=== PATIENT | male | born 1975 | race Caucasian/White ===

== ENCOUNTER 2020-02-10 12:39 | Inpatient (IN) | payer SELFPAY ==
[2020-02-10] MEDS ORDERED: Morphine 4 MG/ML VIAL ONE (13:20)
[2020-02-10] MEDS ORDERED: Ondansetron PF 4 MG/2 ML Vial ONE (13:20)
[2020-02-10 13:39] LABS: Albumin 4.5 g/dL (3.5-5.0)
[2020-02-10 13:40] LABS: #Basophils 0.1 thou/uL (0.0-0.2); #Eosinphils 0.1 thou/uL (0.0-0.7); #Lymphocytes 1.5 thou/uL (1.20-3.40); #Monocytes 0.9 thou/uL (0.11-0.59); #Neutrophils 9.9 thou/uL (1.40-6.50); %Basophils 0.6 % (0.0-1.0); %Eosinophils 0.9 % (0.0-10.0); %Neutrophils 79.5 % (42.0-75.0); Chloride 94 mmol/L (98-107); Hemoglobin 16.8 g/dL (14.0-18.0); Mean Corpuscular HGB CONC 34.2 g/dL (32.0-36.0); Mean Corpuscular Hemoglobin 31.1 pg (27.0-31.0); Mean Corpuscular Volume 90.8 fL (78.0-98.0); Mean Platelet Volume 6.8 fL (7.4-10.4); Platelet Count 394 thou/uL (130-400); Potassium 3.8 mmol/L (3.5-5.1); RBC Distribution Width 11.7 % (11.5-14.5); Red Blood Cell (RBC) Count 5.42 mill/uL (4.70-6.10); Sodium 131 mmol/L (136-145); White Blood Cell (WBC) Count 12.4 thou/uL (4.8-10.8)
[2020-02-10 13:41] LABS: Calcium 9.8 mg/dL (7.8-10.44); Glucose 134 mg/dL (70-105)
[2020-02-10 13:42] LABS: Globulin 3.4 g/dL (2.4-3.5); Protein, Total 7.9 g/dL (6.0-8.3)
[2020-02-10 13:43] LABS: Anion Gap 16 mmol/L (10-20); Bilirubin, Total 0.6 mg/dL (0.2-1.2); Carbon Dioxide 25 mmol/L (22-29)
[2020-02-10 13:44] LABS: Alcohol Less than 10 mg/dL (Less than 10); Alkaline Phosphatase 77 U/L (40-110)
[2020-02-10 13:45] LABS: Calc. Creatinine Clearance 0 mL/min (70-130); Estimated GFR-MDRD 69
[2020-02-10 13:46] LABS: Acetaminophen Less than 6.0 mcg/mL (10.0-30.0); BUN (Urea Nitrogen) 11 mg/dL (8.9-20.6); Salicylate Less than 8.0 mg/dL (15.0-30.0)
[2020-02-10 13:47] LABS: ALT (SGPT) 34 U/L (8-55); AST (SGOT) 23 U/L (5-34)
[2020-02-10] MEDS ORDERED: HYDROmorphone 0.5 MG/0.5 ML SYRINGE ONE ×2 (13:57→14:01)
[2020-02-10] MEDS ORDERED: Ketamine 50 MG/ML (10ML VIAL) ONE (14:02)
--- NOTE | 2020-02-10 14:08 | RAD ---
EXAM: 2 views of the left tibia/fibula HISTORY: Leg pain COMPARISON: None FINDINGS: There is a fracture dislocation of the left ankle. This involves a fracture of the distal t ibia which is likely a fracture of the medial malleolus and posterior malleolus as well as a fracture of the distal fibula. Distal soft tissue swelling is seen. IMPRESSION: Distal tibia and fibula fractures as well as ankle dislocation
--- NOTE | 2020-02-10 14:15 | RAD ---
Radiograph left ankle 2 views: 02/10/2020 1:54 PM HISTORY: 44-year-old male status post acute traumatic injury with deformity. FINDINGS: Lateral and posterior dislocation, and significant rotation, of the talus relative to the distal tibi a. Comminuted and significantly displaced distal fibular metadiaphyseal Casillas category C fracture, with significant lateral angulation of lateral malleolus relative to shaft. Comminuted and significantly displaced medial malleolar fracture. Probable posterior malleolus fracture with significant displacement. Talar dome is maintained. IMPRESSION: Acute, traumatic, comminuted, and significantly displaced trimalleolar left ankle fracture and disloc ation.
[2020-02-10] MEDS ORDERED: Midazolam HCl 2 mg/2 ml Vial ONE (14:50)
--- NOTE | 2020-02-10 15:13 | RAD ---
Radiograph left ankle 2 views: 02/10/2020 3:01 PM HISTORY: 44-year-old male with acute, traumatic trimalleolar fracture-dislocation of the left ankle. FINDINGS: Ankle has been placed into splint. There has been significant interval improvement in alignment of the high lateral malleolar comminuted fracture, now with approximately 50-75% shaft width posterior displacement of the lateral malleolus relative to the fibular shaft, and no significant angulation. There has been interval reduction of the tibiotalar dislocation. The medial and anterior aspects of t he ankle mortise are widened. Interval reduction of the medial malleolus fracture, the distal tip of which is now only moderately m edially displaced. Posterior malleolar fracture fragment is also better aligned. IMPRESSION: Interval reduction of the trimalleolar fracture-dislocation of the ankle (including Casillas category C fracture of the fibula), with improved alignment.
--- NOTE | 2020-02-10 16:55 | HP ---
REQUESTING PHYSICIAN: Dr. Senior. ATTENDING SURGEON: Dr. Galvan. CONSULTATIONS: Orthopedics, Dr. Peguero. HISTORY OF PRESENT ILLNESS: The patient is a 44-year-old man, who was unloading a trailer when he lost his footing, started to slip, planted his left foot and twisted, felt immediate pain and heard a snap. He fell to the ground, noted a deformity to his ankle, called 911 and was brought to the emergency department. In the emergency department, he was evaluated and examined, noted to have a fracture dislocation of the left ankle, at which time we were asked to evaluate the patient for admission and obtain Orthopedic consultation. The patient underwent conscious sedation in the emergency department and had a closed reduction and splinting done. He tolerated this well. The patient denied any loss of consciousness or syncopal events surrounding his fall. ALLERGIES: NONE. CURRENT MEDICATIONS: None. PAST SURGICAL HISTORY: Deviated septum and tonsils. 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 He smokes approximately half a pack of cigarettes per day. Drinks a 12-pack every night, more on the weekends, and admits to using methamphetamine two days ago. REVIEW OF SYSTEMS: A 10-point review of systems is negative as otherwise stated. PHYSICAL EXAMINATION: VITAL SIGNS: Blood pressure 121/78, heart rate 58, respirations 20, oxygen saturation 100% on room air, temperature 98.8. GENERAL: The patient is resting comfortably in bed. He has just been given pain medications, but he is able to answer all my questions. His Vlad Coma Scale is 14, -1 for eye opening. HEENT: Head is normocephalic and atraumatic. Eyes; extraocular motion intact. PERRLA bilaterally. Ears are atraumatic without discharge. Nose atraumatic without discharge. Oropharynx is clear. NECK: Nontender. Trachea is midline with no JVD. CHEST: Clear to auscultation with good inspiratory and expiratory effort. HEART: Regular rate and rhythm. ABDOMEN: Soft, flat, nontender with active bowel sounds. Pelvis is stable. EXTREMITIES: Neurovascularly intact x4. The left lower extremity on initial exam showed gross deformity to the left ankle consistent with his fracture dislocation. Followup exam postreduction showed the left lower extremity continues to be neurovascularly intact, was postreduction with well-padded splint in place. BACK: Atraumatic and nontender. LABORATORY FINDINGS: White blood cell count 12.4, hemoglobin 16.8, hematocrit 49.2, platelets 394. Sodium 131, potassium 3.8, chloride 94, CO2 of 25, BUN 11, creatinine 1.14, glucose 134. Blood alcohol less than 10. RADIOGRAPHIC REPORTS: Views of the left ankle show an acute traumatic comminuted and significantly displaced trimalleolar left ankle fracture and dislocation. Views of the left tibia and fibula again demonstrate the fracture dislocation of the distal tibia and fibula. Repeat ankle views show the interval reduction of the trimalleolar fracture dislocation. ASSESSMENT: 1. Status post ground level fall. 2. Left ankle fracture dislocation. 3. History of significant alcohol use. 4. History of methamphetamine and tobacco use. PLAN: Will be to admit the patient to the surgical floor. He will be made n.p.o. after midnight in preparation to undergo surgery in the morning with Dr. Peguero. Dr. Peguero was notified. The patient will have pulmonary toilet, gastritis, mechanical VTE prophylaxis. The patient was evaluated and examined in the emergency department with Dr. Galvan. Job ID: [id number]
[2020-02-10] MEDS ORDERED: Dextrose 5% in Water 1,000 ML IV PRN (18:45)
[2020-02-10] MEDS ORDERED: traMADol HCl 50 MG TAB PO PRN ×2 (18:45)
[2020-02-10] MEDS ORDERED: Promethazine HCl 25 MG/ML VIAL IM PRN ×2 (18:45)
[2020-02-10] MEDS ORDERED: Dextrose 50% Abboject 50 ML SYRINGE SLOW IVP PRN (18:45)
[2020-02-10] MEDS ORDERED: Ondansetron ODT 4 MG TAB PO PRN (18:45)
[2020-02-10] MEDS ORDERED: Ondansetron PF 4 MG/2 ML Vial IVP PRN (18:45)
[2020-02-10] MEDS ORDERED: Oxazepam 10 MG CAP PO SCH (19:15)
[2020-02-10] MEDS ORDERED: Acetaminophen 500 MG TAB PO SCH (19:15)
[2020-02-10] MEDS: Morphine 2 MG/ML VIAL SLOW IVP PRN (19:50)
[2020-02-10] MEDS: Famotidine 20 MG TAB PO SCH (19:55)
[2020-02-10] MEDS: Sodium Chloride 1 GM TAB PO SCH (19:58)
[2020-02-10 20:22] VITALS: BMI 26.6
[2020-02-10] MEDS: Ibuprofen 600 MG TAB PO SCH (20:41)
[2020-02-10] MEDS: Senokot S 8.6-50 MG TAB PO SCH (21:34)
[2020-02-10 21:46] LABS: SARS-CoV-2 MS2 Positive; SARS-CoV-2 N Gene Negative; SARS-CoV-2 S Gene Negative; SARS-CoV-2 by NAA Not Detected (NotDetected); SARS-CoV-2 orf1ab Negative
[2020-02-11] MEDS: Acetaminophen 500 MG TAB PO SCH ×5 (00:03→23:26)
[2020-02-11] MEDS: Cyclobenzaprine 10 MG TAB PO PRN ×2 (00:07→23:27)
[2020-02-11] MEDS: Sodium Chloride 0.9% 1,000 ML IV SCH ×4 (00:30→20:29)
[2020-02-11] MEDS: Oxazepam 10 MG CAP PO SCH ×5 (00:30→23:27)
[2020-02-11] MEDS: Morphine 2 MG/ML VIAL SLOW IVP PRN ×2 (01:56)
[2020-02-11] MEDS ORDERED: Morphine 2 MG/ML VIAL SLOW IVP PRN (02:24)
[2020-02-11] MEDS ORDERED: Gabapentin 100 MG CAP PO SCH (02:30)
[2020-02-11] MEDS ORDERED: Gabapentin 300 MG CAP PO SCH (02:45)
[2020-02-11 06:44] LABS: #Basophils 0.1 thou/uL (0.0-0.2); #Eosinphils 0.4 thou/uL (0.0-0.7); #Lymphocytes 2.6 thou/uL (1.20-3.40); #Neutrophils 6.3 thou/uL (1.40-6.50); %Basophils 0.6 % (0.0-1.0); %Eosinophils 3.4 % (0.0-10.0); %Lymphocytes 25.5 % (21.0-51.0); %Monocytes 9.8 % (0.0-10.0); %Neutrophils 60.8 % (42.0-75.0); Hemoglobin 15.1 g/dL (14.0-18.0); Mean Corpuscular HGB CONC 33.7 g/dL (32.0-36.0); Mean Corpuscular Hemoglobin 31.4 pg (27.0-31.0); Mean Corpuscular Volume 93.1 fL (78.0-98.0); Mean Platelet Volume 6.8 fL (7.4-10.4); Platelet Count 333 thou/uL (130-400); RBC Distribution Width 11.9 % (11.5-14.5); Red Blood Cell (RBC) Count 4.81 mill/uL (4.70-6.10); White Blood Cell (WBC) Count 10.4 thou/uL (4.8-10.8)
[2020-02-11] MEDS: Ibuprofen 600 MG TAB PO SCH ×3 (06:54→20:30)
[2020-02-11 07:07] LABS: Anion Gap 11 mmol/L (10-20); BUN (Urea Nitrogen) 12 mg/dL (8.9-20.6); Calc. Creatinine Clearance 121 mL/min (70-130); Calcium 8.4 mg/dL (7.8-10.44); Carbon Dioxide 26 mmol/L (22-29); Chloride 98 mmol/L (98-107); Estimated GFR-MDRD 78; Glucose 97 mg/dL (70-105); Magnesium 2.1 mg/dL (1.6-2.6); Phosphorus 2.9 mg/dL (2.3-4.7); Potassium 3.4 mmol/L (3.5-5.1); Sodium 132 mmol/L (136-145)
[2020-02-11] MEDS ORDERED: Multivitamin W/ Minerals 1 TAB PO SCH (09:00)
[2020-02-11] MEDS ORDERED: FLU VACC QS2020-21(6MOS UP)/PF 60 MCG/0.5 ML SYRINGE IM ONE (09:00)
--- NOTE | 2020-02-11 09:35 | CON ---
DATE OF CONSULTATION: 02/11/2020 HISTORY OF PRESENT ILLNESS: Mr. Tay is a 44-year-old male, who was unloading a trailer and planted his left foot twisted, felt immediate pain and deformity in the left ankle. The patient was brought to the emergency room. X-rays revealed comminuted, laterally dislocated trimalleolar fracture of the left ankle. The patient has some numbness over the dorsum of the left foot. The emergency room physician was able to get adequate reduction and was placed in a splint, which he has tolerated well. CURRENT MEDICATION: None. ALLERGIES: NONE. PAST SURGICAL HISTORY: Tonsillectomy and surgery for deviated septum. MEDICAL ILLNESSES: None. 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 Smokes a half pack of cigarettes per day. Drinks 12-pack every night. He admits to using methamphetamine 2 days ago. PHYSICAL EXAMINATION: GENERAL: The patient is a pleasant male. Alert and oriented x3. VITAL SIGNS: Temperature 97.7, pulse 65, respiratory rate 18, blood pressure 132/89, O2 saturation 98% on room air. HEENT: Unremarkable for age. Cranial nerves 2 through 12 are grossly intact. NECK: Good range of motion without pain. Thoracic lumbar spine is nontender to palpation. LUNGS: Clear bilaterally. HEART: Regular rate and rhythm. ABDOMEN: Soft and nontender. Bowel sounds positive. : Not done. EXTREMITIES: Unremarkable except for the left lower extremity. The patient has swelling and bruising on the left ankle. There is decreased sensation over the dorsum of left foot. Good peripheral pulses. He is able to flex and extend his toes well. LABORATORY DATA: White count 12.4, hemoglobin 16.8, hematocrit 49.2. Chemistries are normal. Blood alcohol is less than 10. IMPRESSION: 1. Status post lateral trimalleolar fracture dislocation of the left ankle. 2. History of alcohol use. 3. History of methamphetamine use. 4. Tobacco use. PLAN: The patient will require stabilization of the left ankle. We will plan on performing open reduction and internal fixation of the left ankle later today. Potential risks with the condition of surgery include, but are not limited to infection, bleeding, pain, damage to blood vessels and nerves, nonunion, malunion, the patient may require additional surgery, DVT, and PE formation. The patient's questions were answered. He was informed that he will need to be nonweightbearing for at least 2 months until the fractures are healed. Job ID: [id number]
[2020-02-11] MEDS: Folic Acid 1 MG TAB PO SCH (09:42)
[2020-02-11] MEDS: Famotidine 20 MG TAB PO SCH ×2 (09:42→20:30)
[2020-02-11] MEDS: Polyethylene Glycol 3350 17 GM Packet PO SCH (09:43)
[2020-02-11] MEDS: Sodium Chloride 1 GM TAB PO SCH ×2 (09:43→20:54)
[2020-02-11] MEDS: Senokot S 8.6-50 MG TAB PO SCH ×2 (09:43→20:32)
[2020-02-11] MEDS: Gabapentin 300 MG CAP PO SCH ×3 (09:43→20:29)
[2020-02-11] MEDS: Thiamine 100 MG TAB PO SCH (09:43)
[2020-02-11] MEDS ORDERED: Lidocaine 1% PF 5 ML VIAL ONE (11:46)
[2020-02-11] MEDS ORDERED: Ketorolac Tromethamine 30 MG/ML VIAL ONE (11:46)
[2020-02-11] MEDS ORDERED: Dexamethasone 20 MG/5 ML VIAL ONE (11:46)
[2020-02-11] MEDS ORDERED: Ondansetron PF 4 MG/2 ML Vial ONE (11:46)
[2020-02-11] MEDS ORDERED: PROPOFOL 200 MG/20 ML VIAL ONE (11:46)
[2020-02-11] MEDS ORDERED: Lidocaine 1% w/Epinephrine 1:100K 20 ML VIAL ONE (13:01)
[2020-02-11] MEDS ORDERED: Bupivacaine PF 0.5% 30 ML VIAL ONE (13:01)
[2020-02-11] MEDS ORDERED: Neomycin-Polymyxin 1 ML AMP ONE (13:01)
[2020-02-11] MEDS ORDERED: Fentanyl 100 MCG/2 ML VIAL ONE ×2 (13:02→13:40)
[2020-02-11] MEDS ORDERED: Midazolam HCl 2 mg/2 ml Vial ONE (13:15)
[2020-02-11] MEDS ORDERED: HYDROmorphone 2 MG/ML VIAL SLOW IVP PRN (14:50)
[2020-02-11] MEDS ORDERED: Ondansetron HCl/PF 4 MG/2 ML Vial IVP PRN (14:50)
[2020-02-11] MEDS ORDERED: Promethazine HCl 25 MG/ML VIAL SLOW IVP PRN (14:50)
[2020-02-11] MEDS ORDERED: Promethazine HCl 25 MG/ML VIAL IM PRN (14:50)
[2020-02-11] MEDS ORDERED: Ondansetron ODT 4 MG TAB PO PRN (14:58)
[2020-02-11] MEDS ORDERED: Acetaminophen 325 MG TAB PO PRN (14:58)
[2020-02-11] MEDS ORDERED: Fentanyl 100 MCG/2 ML VIAL SLOW IVP PRN (14:58)
[2020-02-11] MEDS ORDERED: Bisacodyl 10 MG SUPP PR PRN (14:58)
[2020-02-11] MEDS ORDERED: Fleet Enema 133 ML BOT PR PRN (14:58)
[2020-02-11] MEDS ORDERED: Milk Of Magnesia 30 ML UDCUP PO PRN (14:58)
[2020-02-11] MEDS ORDERED: Cepastat Lozenges 1 LOZ PO PRN (14:58)
[2020-02-11] MEDS ORDERED: Ondansetron PF 4 MG/2 ML Vial IVP PRN (14:58)
--- NOTE | 2020-02-11 15:50 | OP ---
DATE OF PROCEDURE: 02/11/2020 PREOPERATIVE DIAGNOSIS: Comminuted trimalleolar fracture of the left ankle. POSTOPERATIVE DIAGNOSIS: Comminuted trimalleolar fracture of the left ankle. PROCEDURE PERFORMED: Open reduction and internal fixation of trimalleolar fracture of the left ankle. ANESTHESIA: General. DESCRIPTION OF PROCEDURE: The patient was given preoperative IV antibiotics, taken to the operating room, placed in supine position. Satisfactory general anesthesia was performed. The left lower extremity was sterilely prepped and draped in usual fashion. After exsanguination, tourniquet was raised to 250 mmHg at the left thigh. A longitudinal incision was made over the lateral aspect of the ankle over the distal fibula. Incision was approximately 6 inches in length. Blunt and sharp dissection was made to the lateral aspect of the fibula. The main oblique portion fracture of the distal shaft of the fibula was reduced, held reduced with a bone clamp and then internally fixed using a 3.5 cortical screw in a lag fashion. There was a butterfly fragment also in this area and this was reduced and stabilized with #2 Vicryl in a cerclage [id number] type suture. The distal fibula was then internally fixed additionally with a 5-hole distal fibular [employer]ynthe[employer] locking plate. Initially, a 3.5 cortical screw was used to bring the plate to close to the lateral aspect of the fibula and then 5 locking screws were placed distally and additional 3 locking screws were placed proximally. This was all performed under fluoroscopic visualization and showed good reduction of the fractures of the distal fibula and proper placement of the plate and screws. A longitudinal incision was then made on the medial aspect of the ankle over the medial malleolus. Medial malleolus was comminuted. One of the fragments was loose and was in multiple fragments and it had to be debrided. The other portion was reduced and internally fixed using two 4.0 cannulated screws and the deltoid ligament that would have also been injured was repaired back to this portion of the medial malleolus using 0 Vicryl in an interrupted [id number] sutures through the bone and this provided good repair of the deltoid ligament as well as the medial malleolar fragment. Again, this was performed under fluoroscopic visualization. The C-arm was also used to look at the posterior malleolus and after the medial and lateral malleoli were stabilized and internally fixed, the posterior malleolus fracture that involved very little of the articular cartilage surface found to be in good position and did not require any internal fixation. Both wounds were then irrigated with antibiotic solution. They were closed using 0 Vicryl in interrupted simple sutures and then the skin was closed with skin daija. The wounds were infiltrated with a total of 30 mL of 0.5% Marcaine with epinephrine. Sterile dressing was applied. The tourniquet was released. The left foot and ankle were placed into a tall boot. The patient was awakened, extubated, and transferred to the recovery room in stable condition. ESTIMATED BLOOD LOSS: None. COMPLICATIONS: None. TOURNIQUET TIME: 61 minutes. Job ID: [id number]
[2020-02-11] MEDS: Ketorolac Tromethamine 30 MG/ML VIAL IVP SCH ×2 (17:40→23:28)
--- NOTE | 2020-02-11 18:40 | RAD ---
3 intraoperative images of the left ankle: 02/11/2020 COMPARISON: 02/10/2020 HISTORY: Fracture status post ORIF Findings: The transverse fracture at the base of the medial malleolus has been treated with 2 screws . The comminuted obliquely oriented distal fibular fracture has been treated with a lateral screw and plate fixation. There is anatomic alignment at the fracture sites. IMPRESSION: ORIF as above.
[2020-02-11] MEDS: CEFAZOLIN 2 GM in Premix Bag 1 BAG IVPB SCH (20:27)
[2020-02-11] MEDS: Aspirin 325 MG TAB PO SCH (20:30)
--- NOTE | 2020-02-12 04:59 | PRG ---
DATE OF SERVICE: 02/12/2020 SUBJECTIVE: The patient was seen this evening during rounds. He was lying in bed, resting comfortably and asleep with no signs of acute distress. He is postoperative day #0 after ORIF of a trimalleolar left ankle fracture. OBJECTIVE: VITAL SIGNS: Temperature 97.9, pulse 90, respirations 18, oxygen saturation 93% on room air, blood pressure 143/90. GENERAL: Well-appearing middle-aged male, lying in bed, resting comfortably and asleep with no signs of acute distress. PULMONARY: Equal chest rise and fall. No signs of acute respiratory distress. ASSESSMENT: 1. Status post fall from trailer. 2. Left ankle fracture dislocation, now postop day #0. 3. History of alcohol and methamphetamine abuse. PLAN: 1. Continue current diet and pain regimen. 2. Continue physical and occupational therapy. 3. The patient likely will be discharged tomorrow, if he is moving around safely. Job ID: [id number]
[2020-02-12] MEDS: Ketorolac Tromethamine 30 MG/ML VIAL IVP SCH ×2 (05:29→11:28)
[2020-02-12] MEDS: CEFAZOLIN 2 GM in Premix Bag 1 BAG IVPB SCH (05:30)
[2020-02-12] MEDS: Acetaminophen 500 MG TAB PO SCH ×2 (05:31→11:27)
[2020-02-12] MEDS: Oxazepam 10 MG CAP PO SCH ×2 (05:31→11:28)
[2020-02-12 05:55] LABS: #Eosinphils 0.2 thou/uL (0.0-0.7); #Monocytes 1.1 thou/uL (0.11-0.59); #Neutrophils 9.1 thou/uL (1.40-6.50); %Basophils 0.4 % (0.0-1.0); %Eosinophils 1.3 % (0.0-10.0); %Lymphocytes 16.2 % (21.0-51.0); %Monocytes 8.6 % (0.0-10.0); %Neutrophils 73.6 % (42.0-75.0); Mean Corpuscular Hemoglobin 32.7 pg (27.0-31.0); Mean Corpuscular Volume 93.5 fL (78.0-98.0); Mean Platelet Volume 7.5 fL (7.4-10.4); Platelet Count 314 thou/uL (130-400); RBC Distribution Width 11.8 % (11.5-14.5); Red Blood Cell (RBC) Count 4.58 mill/uL (4.70-6.10); White Blood Cell (WBC) Count 12.4 thou/uL (4.8-10.8)
[2020-02-12] MEDS: Gabapentin 300 MG CAP PO SCH (07:57)
[2020-02-12] MEDS: Sodium Chloride 1 GM TAB PO SCH (07:57)
[2020-02-12] MEDS: Folic Acid 1 MG TAB PO SCH (07:57)
[2020-02-12] MEDS: Aspirin 325 MG TAB PO SCH (07:57)
[2020-02-12] MEDS: Famotidine 20 MG TAB PO SCH (07:57)
[2020-02-12] MEDS: Thiamine 100 MG TAB PO SCH (07:57)
[2020-02-12] MEDS: Polyethylene Glycol 3350 17 GM Packet PO SCH (08:09)
[2020-02-12] MEDS: Senokot S 8.6-50 MG TAB PO SCH (08:09)
[2020-02-12 08:23] LABS: Anion Gap 12 mmol/L (10-20); BUN (Urea Nitrogen) 9 mg/dL (8.9-20.6); Calc. Creatinine Clearance 132 mL/min (70-130); Calcium 8.7 mg/dL (7.8-10.44); Carbon Dioxide 25 mmol/L (22-29); Chloride 103 mmol/L (98-107); Estimated GFR-MDRD 87; Glucose 123 mg/dL (70-105); Magnesium 2.1 mg/dL (1.6-2.6); Phosphorus 2.4 mg/dL (2.3-4.7); Potassium 3.9 mmol/L (3.5-5.1); Sodium 136 mmol/L (136-145)
[2020-02-12] MEDS ORDERED: Multivitamin W/ Minerals 1 TAB PO SCH (09:00)
[2020-02-12 09:10] VITALS: BP 148/93; TEMP 98.2
[2020-02-12] MEDS: Cyclobenzaprine 10 MG TAB PO PRN (10:06)
--- NOTE | 2020-02-12 11:35 | PRG ---
DATE OF SERVICE: 02/12/2020 SUBJECTIVE: The patient underwent open reduction and internal fixation of a trimalleolar fracture dislocation of the left ankle yesterday. The patient was placed in a boot, which he is tolerating fairly well. The patient started physical therapy today. He understands he needs to be nonweightbearing on the left foot. OBJECTIVE: VITAL SIGNS: Patient has been afebrile. Pulse 74, respiratory rate 20, blood pressure 148/93, O2 saturation 98% on room air. LABORATORY DATA: This morning shows white count 12.4, hemoglobin 15, hematocrit 42.9. The patient has a boot on the left foot ankle and leg. The patient is able to flex and extend his toes well and has good capillary refill, normal sensation. The patient will continue to work with physical therapy to be able to use either crutches or a walker. He again understands that he needs to be nonweightbearing on the left foot and need to be able to control his pain with p.o. medication in order to be discharged possibly tomorrow and then follow up in my office in 2 weeks. Job ID: [id number]
== END 2020-02-12 13:59 | disposition home or self-care (01) | DRG 494 ==
LOC: ERS 12:39 → SURG B 14:23
PROVIDERS: ADMIT Surgery; ATTEND Surgery
PROC: 0QSK04Z Reposition Left Fibula with Internal Fixation Device, Open Approach (ICD-10-PCS; principal; 2020-02-11)
PROC: 0QSH04Z Reposition Left Tibia with Internal Fixation Device, Open Approach (ICD-10-PCS; 2020-02-11)
DX: S82.852A Displaced trimalleolar fracture of left lower leg, initial encounter for closed fracture (principal); W01.0XXA Fall on same level from slipping, tripping and stumbling without subsequent striking against object, initial encounter; F17.210 Nicotine dependence, cigarettes, uncomplicated; Z20.828 Contact with and (suspected) exposure to other viral communicable diseases; Z90.89 Acquired absence of other organs
CPT/HCPCS: 36415; 36416; 76000; 80048; 80053; 80307; 83735; 84100; 85025; 87635; 90471; 90662; 90732; C1713; C1769; G0008; G0009; G0390; J0690; J1100; J1170; J1885; J2250; J2270; J2405; J2704; J3010; J7030; S0020; U0003

== ENCOUNTER 2021-12-26 00:13 | Emergency (ER) | payer SELFPAY | END 2021-12-26 00:44 | disposition left against medical advice (07) | LOC: ERS 00:13 | DX: Z53.21 Procedure and treatment not carried out due to patient leaving prior to being seen by health care provider (principal) ==

== ENCOUNTER 2022-06-15 04:35 | Emergency (ER) | payer SELFPAY ==
[2022-06-15] MEDS ORDERED: Acetaminophen 500 MG TAB ONE (05:03)
[2022-06-15 05:38] LABS: #Basophils 0.1 thou/uL (0.0-0.2); #Eosinphils 0.1 thou/uL (0.0-0.7); #Lymphocytes 1.7 thou/uL (1.20-3.40); #Monocytes 1.1 thou/uL (0.11-0.59); #Neutrophils 9.2 thou/uL (1.40-6.50); %Basophils 0.6 % (0.0-1.0); %Eosinophils 1.2 % (0.0-10.0); %Monocytes 9.1 % (0.0-10.0); %Neutrophils 75.1 % (42.0-75.0); Hemoglobin 17.9 g/dL (14.0-18.0); Mean Corpuscular HGB CONC 35.8 g/dL (32.0-36.0); Mean Corpuscular Hemoglobin 33.1 pg (27.0-31.0); Mean Corpuscular Volume 92.6 fl (78.0-98.0); Mean Platelet Volume 7.3 fL (7.4-10.4); Platelet Count 320 10x3/uL (130-400); RBC Distribution Width 11.7 % (11.5-14.5); Red Blood Cell (RBC) Count 5.41 mill/uL (4.70-6.10); White Blood Cell (WBC) Count 12.2 10x3/uL (4.8-10.8)
[2022-06-15 06:01] LABS: ALT (SGPT) 29 U/L (8-55); AST (SGOT) 53 U/L (5-34); Albumin 4.7 g/dL (3.5-5.0); Alkaline Phosphatase 74 U/L (40-110); Anion Gap 18 mmol/L (10-20); BUN (Urea Nitrogen) 7 mg/dL (8.9-20.6); Bilirubin, Total 1.2 mg/dL (0.2-1.2); Calc. Creatinine Clearance 0 mL/min (70-130); Calcium 10.5 mg/dL (7.8-10.44); Carbon Dioxide 19 mmol/L (22-29); Chloride 95 mmol/L (98-107); Estimated GFR 75; Globulin 3.3 g/dL (2.4-3.5); Glucose 166 mg/dL (70-105); Potassium 3.7 mmol/L (3.5-5.1); Sodium 128 mmol/L (136-145)
== END 2022-06-15 08:20 | disposition home or self-care (01) ==
LOC: ERS 04:35
DX: F41.9 Anxiety disorder, unspecified (principal); F41.0 Panic disorder [episodic paroxysmal anxiety]; D72.829 Elevated white blood cell count, unspecified; I10 Essential (primary) hypertension; F17.210 Nicotine dependence, cigarettes, uncomplicated
CPT/HCPCS: 36415; 70450; 71045; 80053; 84484; 85025; 85379; 93005

== ENCOUNTER 2022-07-03 21:18 | Inpatient (IN) | payer BC, SELFPAY ==
[2022-07-03] MEDS ORDERED: Aspirin Chewable 81 MG TAB ONE (21:29)
[2022-07-03] MEDS ORDERED: LORazepam 2 MG/ML SYR.(CARPUJECT) ONE (21:29)
[2022-07-03] MEDS ORDERED: Magnesium 2 GM/50 ML BAG (IN WATER) ONE (21:46)
[2022-07-03 21:50] LABS: #Basophils 0.1 thou/uL (0.0-0.2); #Eosinphils 0.2 thou/uL (0.0-0.7); #Lymphocytes 1.6 thou/uL (1.20-3.40); #Monocytes 0.8 thou/uL (0.11-0.59); #Neutrophils 6.7 thou/uL (1.40-6.50); %Basophils 0.8 % (0.0-1.0); %Eosinophils 2.4 % (0.0-10.0); %Lymphocytes 17.3 % (21.0-51.0); %Monocytes 8.6 % (0.0-10.0); %Neutrophils 70.8 % (42.0-75.0); Hemoglobin 17.5 g/dL (14.0-18.0); Mean Corpuscular HGB CONC 35.8 g/dL (32.0-36.0); Mean Corpuscular Hemoglobin 32.5 pg (27.0-31.0); Mean Corpuscular Volume 90.8 fl (78.0-98.0); Mean Platelet Volume 6.4 fL (7.4-10.4); Platelet Count 391 10x3/uL (130-400); RBC Distribution Width 11.4 % (11.5-14.5); Red Blood Cell (RBC) Count 5.38 mill/uL (4.70-6.10); White Blood Cell (WBC) Count 9.4 10x3/uL (4.8-10.8)
[2022-07-03 22:10] LABS: Acetaminophen Less than 10.0 mcg/mL (10.0-30.0); Alcohol Less than 10 mg/dL (Less than 10); CK (CPK) 174 U/L (30-200); Salicylate Less than 8.0 mg/dL (15.0-30.0)
[2022-07-03 22:12] LABS: ALT (SGPT) 20 U/L (8-55); AST (SGOT) 21 U/L (5-34); Albumin 4.6 g/dL (3.5-5.0); Alkaline Phosphatase 79 U/L (40-110); Anion Gap 19 mmol/L (10-20); BUN (Urea Nitrogen) 6 mg/dL (8.9-20.6); Bilirubin, Total 1.3 mg/dL (0.2-1.2); Calc. Creatinine Clearance 0 mL/min (70-130); Calcium 9.6 mg/dL (7.8-10.44); Carbon Dioxide 19 mmol/L (22-29); Chloride 81 mmol/L (98-107); Estimated GFR 106; Globulin 3.2 g/dL (2.4-3.5); Glucose 202 mg/dL (70-105); Potassium 2.8 mmol/L (3.5-5.1); Protein, Total 7.8 g/dL (6.0-8.3)
[2022-07-03 22:19] LABS: Sodium 116 mmol/L (136-145)
[2022-07-03] MEDS ORDERED: Potassium Chloride 20 MEQ TAB ONE (22:38)
[2022-07-03] MEDS ORDERED: Thiamine HCl 200 MG/2 ML VIAL SLOW IVP SCH (22:45)
[2022-07-03] MEDS ORDERED: Lorazepam 2 MG/ML VIAL IM PRN (23:06)
[2022-07-03] MEDS ORDERED: Acetaminophen 325 MG TAB PO PRN (23:06)
[2022-07-03] MEDS ORDERED: Ondansetron ODT 4 MG TAB PO PRN ×2 (23:06)
[2022-07-03] MEDS ORDERED: Ondansetron PF 4 MG/2 ML Vial IVP PRN (23:06)
[2022-07-03] MEDS ORDERED: Lorazepam 1 MG TAB PO PRN (23:06)
[2022-07-03] MEDS ORDERED: Sodium Chloride 256 MEQ in Sterile Water 936 ML IV SCH (23:15)
[2022-07-03] MEDS ORDERED: Electrolyte Replacement Protocol 1 EACH FS SCH (23:15)
[2022-07-03 23:48] LABS: ALT (SGPT) 18 U/L (8-55); AST (SGOT) 16 U/L (5-34); Albumin 4.2 g/dL (3.5-5.0); Alkaline Phosphatase 71 U/L (40-110); Anion Gap 16 mmol/L (10-20); BUN (Urea Nitrogen) 6 mg/dL (8.9-20.6); Bilirubin, Total 1.3 mg/dL (0.2-1.2); Calc. Creatinine Clearance 0 mL/min (70-130); Calcium 8.8 mg/dL (7.8-10.44); Carbon Dioxide 21 mmol/L (22-29); Chloride 82 mmol/L (98-107); Estimated GFR 110; Globulin 2.7 g/dL (2.4-3.5); Glucose 178 mg/dL (70-105); Potassium 2.8 mmol/L (3.5-5.1); Protein, Total 6.9 g/dL (6.0-8.3)
[2022-07-03 23:52] LABS: Sodium 116 mmol/L (136-145)
[2022-07-04] MEDS ORDERED: Potassium Chloride 20 MEQ TAB ONE ×2 (00:45→05:33)
[2022-07-04 00:58] VITALS: BMI 31.1
[2022-07-04] MEDS: Potassium Chloride 20 MEQ TAB PO SCH ×2 (01:21→05:38)
[2022-07-04] MEDS ORDERED: Lorazepam 1 MG TAB ONE (03:56)
[2022-07-04] MEDS: Lorazepam 1 MG TAB PO SCH ×5 (04:12→21:21)
[2022-07-04 05:08] LABS: #Eosinphils 0.4 thou/uL (0.0-0.7); #Lymphocytes 2.4 thou/uL (1.20-3.40); #Monocytes 0.9 thou/uL (0.11-0.59); #Neutrophils 4.7 thou/uL (1.40-6.50); %Basophils 0.4 % (0.0-1.0); %Eosinophils 5.1 % (0.0-10.0); %Lymphocytes 28.6 % (21.0-51.0); %Monocytes 10.5 % (0.0-10.0); %Neutrophils 55.4 % (42.0-75.0); Hemoglobin 16.7 g/dL (14.0-18.0); Mean Corpuscular HGB CONC 35.5 g/dL (32.0-36.0); Mean Corpuscular Hemoglobin 32.2 pg (27.0-31.0); Mean Corpuscular Volume 90.7 fl (78.0-98.0); Mean Platelet Volume 6.7 fL (7.4-10.4); Platelet Count 364 10x3/uL (130-400); RBC Distribution Width 11.4 % (11.5-14.5); Red Blood Cell (RBC) Count 5.17 mill/uL (4.70-6.10); White Blood Cell (WBC) Count 8.5 10x3/uL (4.8-10.8)
[2022-07-04 05:25] LABS: ALT (SGPT) 18 U/L (8-55); AST (SGOT) 18 U/L (5-34); Albumin 4.4 g/dL (3.5-5.0); Alkaline Phosphatase 75 U/L (40-110); Anion Gap 15 mmol/L (10-20); BUN (Urea Nitrogen) 6 mg/dL (8.9-20.6); Bilirubin, Total 1.7 mg/dL (0.2-1.2); Calc. Creatinine Clearance 155 mL/min (70-130); Calcium 9.3 mg/dL (7.8-10.44); Carbon Dioxide 24 mmol/L (22-29); Chloride 84 mmol/L (98-107); Estimated GFR 107; Glucose 155 mg/dL (70-105); Magnesium 2.2 mg/dL (1.6-2.6); Phosphorus 2.9 mg/dL (2.3-4.7); Potassium 3.2 mmol/L (3.5-5.1); Protein, Total 7.4 g/dL (6.0-8.3); Sodium 120 mmol/L (136-145)
[2022-07-04] MEDS ORDERED: Sodium Chloride 256 MEQ in Sterile Water 936 ML IV SCH (08:00)
[2022-07-04 08:30] LABS: Amphetamine Detected (NotDetected); Barbiturates Screen Not Detected (NotDetected); Benzodiazepine Screen Detected (NotDetected); Cocaine Metabolite Screen Detected (NotDetected); Methadone Not Detected (NotDetected); Methamphetamine Detected (NotDetected); Opiate Screen Not Detected (NotDetected); Oxycodone Screen Not Detected (NotDetected); Phencyclidine (PCP) Not Detected (NotDetected); THC/Cannabinoid Screen Not Detected (NotDetected); Tricyclic Screen Not Detected (NotDetected)
[2022-07-04] MEDS ORDERED: Folic Acid 1 MG TAB ONE (08:45)
[2022-07-04] MEDS: Folic Acid 1 MG TAB PO SCH (08:57)
[2022-07-04] MEDS: Multivit, Therapeutic 1 TAB PO SCH (08:57)
[2022-07-04] MEDS: Potassium Chloride 20 MEQ in Premix Bag 1 BAG IVPB SCH ×2 (08:58→14:22)
[2022-07-04] MEDS ORDERED: Potassium Chloride 20 MEQ TAB PO SCH (09:00)
[2022-07-04 10:25] LABS: Magnesium 2.2 mg/dL (1.6-2.6); Phosphorus 2.6 mg/dL (2.3-4.7)
[2022-07-04 10:26] LABS: Anion Gap 15 mmol/L (10-20); BUN (Urea Nitrogen) 6 mg/dL (8.9-20.6); Calc. Creatinine Clearance 146 mL/min (70-130); Calcium 9.4 mg/dL (7.8-10.44); Carbon Dioxide 25 mmol/L (22-29); Chloride 87 mmol/L (98-107); Estimated GFR 104; Glucose 139 mg/dL (70-105); Potassium 3.5 mmol/L (3.5-5.1); Sodium 123 mmol/L (136-145)
[2022-07-04 16:38] LABS: Anion Gap 15 mmol/L (10-20); BUN (Urea Nitrogen) 11 mg/dL (8.9-20.6); Calc. Creatinine Clearance 141 mL/min (70-130); Calcium 9.1 mg/dL (7.8-10.44); Carbon Dioxide 21 mmol/L (22-29); Chloride 90 mmol/L (98-107); Estimated GFR 100; Glucose 147 mg/dL (70-105); Sodium 122 mmol/L (136-145)
[2022-07-04 22:41] LABS: Anion Gap 12 mmol/L (10-20); BUN (Urea Nitrogen) 10 mg/dL (8.9-20.6); Calc. Creatinine Clearance 144 mL/min (70-130); Calcium 9.2 mg/dL (7.8-10.44); Carbon Dioxide 25 mmol/L (22-29); Chloride 90 mmol/L (98-107); Estimated GFR 103; Glucose 150 mg/dL (70-105); Potassium 3.4 mmol/L (3.5-5.1); Sodium 124 mmol/L (136-145)
[2022-07-04] MEDS ORDERED: Lorazepam 1 MG TAB PO PRN (23:06)
[2022-07-04] MEDS ORDERED: Thiamine HCl 200 MG/2 ML VIAL SLOW IVP SCH (23:15)
[2022-07-05] MEDS: Lorazepam 1 MG TAB PO SCH ×2 (03:37→10:17)
[2022-07-05 05:12] LABS: #Eosinphils 0.5 thou/uL (0.0-0.7); #Lymphocytes 2.5 thou/uL (1.20-3.40); #Monocytes 0.7 thou/uL (0.11-0.59); #Neutrophils 3.7 thou/uL (1.40-6.50); %Basophils 0.6 % (0.0-1.0); %Eosinophils 6.8 % (0.0-10.0); %Lymphocytes 33.5 % (21.0-51.0); %Monocytes 9.5 % (0.0-10.0); %Neutrophils 49.7 % (42.0-75.0); Hemoglobin 16.1 g/dL (14.0-18.0); Mean Corpuscular Hemoglobin 33.3 pg (27.0-31.0); Mean Corpuscular Volume 92.5 fl (78.0-98.0); Mean Platelet Volume 6.9 fL (7.4-10.4); Platelet Count 291 10x3/uL (130-400); RBC Distribution Width 11.4 % (11.5-14.5); Red Blood Cell (RBC) Count 4.82 mill/uL (4.70-6.10); White Blood Cell (WBC) Count 7.5 10x3/uL (4.8-10.8)
[2022-07-05 05:35] LABS: Anion Gap 14 mmol/L (10-20); BUN (Urea Nitrogen) 10 mg/dL (8.9-20.6); Calc. Creatinine Clearance 149 mL/min (70-130); Calcium 9.3 mg/dL (7.8-10.44); Carbon Dioxide 25 mmol/L (22-29); Chloride 92 mmol/L (98-107); Estimated GFR 106; Glucose 133 mg/dL (70-105); Magnesium 2.1 mg/dL (1.6-2.6); Potassium 3.5 mmol/L (3.5-5.1); Sodium 127 mmol/L (136-145)
[2022-07-05] MEDS ORDERED: Potassium Chloride 20 MEQ TAB PO SCH (08:00)
[2022-07-05] MEDS: Multivit, Therapeutic 1 TAB PO SCH (10:16)
[2022-07-05] MEDS: Folic Acid 1 MG TAB PO SCH (10:16)
[2022-07-05 12:04] VITALS: BP 135/95; TEMP 98
[2022-07-05] MEDS ORDERED: Lorazepam 1 MG TAB PO PRN (23:06)
[2022-07-05] MEDS ORDERED: Lorazepam 0.5 MG TAB PO SCH (23:15)
[2022-07-06] MEDS ORDERED: Lorazepam 0.5 MG TAB PO PRN (23:06)
[2022-07-06] MEDS ORDERED: Thiamine 100 MG TAB PO SCH (23:15)
== END 2022-07-05 14:20 | disposition home or self-care (01) | DRG 641 ==
LOC: ERS 21:18 → ERHOLD 22:59 → 2NO 07-04 11:59
PROVIDERS: ADMIT Physician Assistant; ATTEND Internal Medicine
DX: E87.1 Hypo-osmolality and hyponatremia (principal); R44.0 Auditory hallucinations; F41.9 Anxiety disorder, unspecified; R44.1 Visual hallucinations; I10 Essential (primary) hypertension; F10.10 Alcohol abuse, uncomplicated; E87.6 Hypokalemia; F17.210 Nicotine dependence, cigarettes, uncomplicated; F15.10 Other stimulant abuse, uncomplicated; Z79.899 Other long term (current) drug therapy; Z90.89 Acquired absence of other organs; Z71.41 Alcohol abuse counseling and surveillance of alcoholic; Z71.51 Drug abuse counseling and surveillance of drug abuser
CPT/HCPCS: 36415; 70450; 71045; 80048; 80053; 80306; 80307; 82550; 83735; 84100; 84484; 85025; 93005; A4217; J2060; J3411; J3475; J3480

== ENCOUNTER 2022-07-14 06:22 | Emergency (ER) | payer BC ==
[2022-07-14 07:16] LABS: #Eosinphils 0.4 thou/uL (0.0-0.7); #Lymphocytes 2.1 thou/uL (1.20-3.40); #Monocytes 0.8 thou/uL (0.11-0.59); #Neutrophils 4.9 thou/uL (1.40-6.50); %Basophils 0.3 % (0.0-1.0); %Eosinophils 4.6 % (0.0-10.0); %Lymphocytes 25.6 % (21.0-51.0); %Monocytes 9.4 % (0.0-10.0); Hemoglobin 16.4 g/dL (14.0-18.0); Mean Corpuscular HGB CONC 36.4 g/dL (32.0-36.0); Mean Corpuscular Hemoglobin 33.3 pg (27.0-31.0); Mean Corpuscular Volume 91.3 fl (78.0-98.0); Mean Platelet Volume 6.7 fL (7.4-10.4); Platelet Count 321 10x3/uL (130-400); RBC Distribution Width 11.8 % (11.5-14.5); Red Blood Cell (RBC) Count 4.93 mill/uL (4.70-6.10); White Blood Cell (WBC) Count 8.2 10x3/uL (4.8-10.8)
[2022-07-14 07:37] LABS: ALT (SGPT) 18 U/L (8-55); AST (SGOT) 16 U/L (5-34); Albumin 4.5 g/dL (3.5-5.0); Alkaline Phosphatase 61 U/L (40-110); Anion Gap 14 mmol/L (10-20); BUN (Urea Nitrogen) 12 mg/dL (8.9-20.6); Bilirubin, Total 0.5 mg/dL (0.2-1.2); Calc. Creatinine Clearance 0 mL/min (70-130); Calcium 9.3 mg/dL (7.8-10.44); Carbon Dioxide 22 mmol/L (22-29); Chloride 98 mmol/L (98-107); Estimated GFR 78; Globulin 2.9 g/dL (2.4-3.5); Glucose 181 mg/dL (70-105); Potassium 3.4 mmol/L (3.5-5.1); Protein, Total 7.4 g/dL (6.0-8.3); Sodium 131 mmol/L (136-145)
[2022-07-14 09:38] LABS: Bilirubin Negative (Negative); Blood, Urine Negative (Negative); Clarity Clear (Clear); Glucose, Urine (Dipstick) Normal (Negative); Ketone, Urine Negative (Negative); Leukocyte Negative Leu/uL (Negative); Nitrite Negative (Negative); Protein, Urine (Dipstick) Negative (Neg-Trace); Specific Gravity, Urine 1.011 (1.002-1.036); Urobilinogen Normal mg/dL (Less than 2); pH, Urine 6.5 (5.0-9.0)
[2022-07-14 09:42] LABS: Acetaminophen Less than 10.0 mcg/mL (10.0-30.0); Alcohol Less than 10 mg/dL (Less than 10); Salicylate Less than 8.0 mg/dL (15.0-30.0)
[2022-07-14 09:50] LABS: Amphetamine Detected (NotDetected); Barbiturates Screen Not Detected (NotDetected); Benzodiazepine Screen Not Detected (NotDetected); Cocaine Metabolite Screen Not Detected (NotDetected); Methadone Not Detected (NotDetected); Methamphetamine Detected (NotDetected); Opiate Screen Not Detected (NotDetected); Oxycodone Screen Not Detected (NotDetected); Phencyclidine (PCP) Not Detected (NotDetected); THC/Cannabinoid Screen Not Detected (NotDetected); Tricyclic Screen Not Detected (NotDetected)
== END 2022-07-14 10:08 | disposition home or self-care (01) ==
LOC: ERS 06:22
DX: R42 Dizziness and giddiness (principal); I10 Essential (primary) hypertension; F17.210 Nicotine dependence, cigarettes, uncomplicated
CPT/HCPCS: 36415; 70450; 71045; 80053; 80306; 80307; 81003; 84443; 84484; 85025; 93005

== ENCOUNTER 2022-07-25 17:21 | Emergency (ER) | payer BC, SELFPAY ==
[2022-07-25 18:05] LABS: #Basophils 0.1 thou/uL (0.0-0.2); #Eosinphils 0.2 thou/uL (0.0-0.7); #Lymphocytes 1.7 thou/uL (1.20-3.40); #Monocytes 0.6 thou/uL (0.11-0.59); #Neutrophils 4.9 thou/uL (1.40-6.50); %Eosinophils 2.1 % (0.0-10.0); %Monocytes 8.2 % (0.0-10.0); %Neutrophils 65.7 % (42.0-75.0); Hemoglobin 16.2 g/dL (14.0-18.0); Mean Corpuscular HGB CONC 34.8 g/dL (32.0-36.0); Mean Corpuscular Hemoglobin 31.9 pg (27.0-31.0); Mean Corpuscular Volume 91.8 fl (78.0-98.0); Mean Platelet Volume 6.5 fL (7.4-10.4); Platelet Count 365 10x3/uL (130-400); RBC Distribution Width 11.8 % (11.5-14.5); Red Blood Cell (RBC) Count 5.08 mill/uL (4.70-6.10); White Blood Cell (WBC) Count 7.5 10x3/uL (4.8-10.8)
[2022-07-25] MEDS ORDERED: Aspirin Chewable 81 MG TAB ONE (18:25)
[2022-07-25 18:32] LABS: ALT (SGPT) 13 U/L (8-55); AST (SGOT) 14 U/L (5-34); Albumin 4.7 g/dL (3.5-5.0); Alkaline Phosphatase 78 U/L (40-110); Anion Gap 19 mmol/L (10-20); BUN (Urea Nitrogen) Less than 4 mg/dL (8.9-20.6); Bilirubin, Total 0.9 mg/dL (0.2-1.2); Calc. Creatinine Clearance 0 mL/min (70-130); Calcium 9.8 mg/dL (7.8-10.44); Carbon Dioxide 17 mmol/L (22-29); Chloride 92 mmol/L (98-107); Estimated GFR 92; Globulin 2.8 g/dL (2.4-3.5); Glucose 167 mg/dL (70-105); Potassium 3.1 mmol/L (3.5-5.1); Protein, Total 7.5 g/dL (6.0-8.3); Sodium 125 mmol/L (136-145)
== END 2022-07-25 19:04 | disposition home or self-care (01) ==
LOC: ERS 17:21
DX: R07.9 Chest pain, unspecified (principal); I10 Essential (primary) hypertension; E87.1 Hypo-osmolality and hyponatremia; F17.210 Nicotine dependence, cigarettes, uncomplicated
CPT/HCPCS: 36415; 71045; 80053; 84484; 85025; 93005

== ENCOUNTER 2022-12-24 00:15 | Emergency (ER) | payer SELFPAY ==
[2022-12-24 00:55] LABS: #Eosinphils 0.4 thou/uL (0.0-0.7); #Monocytes 0.9 thou/uL (0.11-0.59); #Neutrophils 6.4 thou/uL (1.40-6.50); %Basophils 0.4 % (0.0-1.0); %Eosinophils 3.6 % (0.0-10.0); %Lymphocytes 21.9 % (21.0-51.0); %Monocytes 9.2 % (0.0-10.0); %Neutrophils 64.7 % (42.0-75.0); Hematocrit 40.2 % (42.0-52.0); Hemoglobin 14.7 g/dL (14.0-18.0); Mean Corpuscular HGB CONC 36.6 g/dL (32.0-36.0); Mean Corpuscular Hemoglobin 31.1 pg (27.0-31.0); Mean Corpuscular Volume 85.2 fl (78.0-98.0); Mean Platelet Volume 9.2 fL (7.4-10.4); Platelet Count 379 10x3/uL (130-400); RBC Distribution Width 12.2 % (11.5-14.5); Red Blood Cell (RBC) Count 4.72 mill/uL (4.70-6.10); White Blood Cell (WBC) Count 9.9 10x3/uL (4.8-10.8)
[2022-12-24 01:18] LABS: ALT (SGPT) 24 U/L (8-55); AST (SGOT) 25 U/L (5-34); Acetaminophen Less than 10 mcg/mL (10.0-30.0); Albumin 4.8 g/dL (3.5-5.0); Alcohol Less than 10.0 mg/dL (Less than 10); Alkaline Phosphatase 77 U/L (40-110); Anion Gap 14 mmol/L (10-20); BUN (Urea Nitrogen) 10 mg/dL (8.9-20.6); Bilirubin, Total 0.9 mg/dL (0.2-1.2); Calc. Creatinine Clearance 0 mL/min (70-130); Calcium 10.1 mg/dL (7.8-10.44); Carbon Dioxide 23 mmol/L (22-29); Chloride 98 mmol/L (98-107); Estimated GFR 90; Globulin 3.1 g/dL (2.4-3.5); Glucose 226 mg/dL (70-105); Potassium 3.9 mmol/L (3.5-5.1); Protein, Total 7.9 g/dL (6.0-8.3); Salicylate Less than 8.0 mg/dL (15.0-30.0); Sodium 131 mmol/L (136-145)
[2022-12-24 01:19] LABS: Amphetamine Detected (NotDetected); Bacteria/HPF None Seen HPF (None Seen); Barbiturates Screen Not Detected (NotDetected); Benzodiazepine Screen Not Detected (NotDetected); Bilirubin Negative (Negative); Blood, Urine Negative (Negative); CAUTI Indications for Culture Alt mental st,lethar; Clarity Clear (Clear); Cocaine Metabolite Screen Detected (NotDetected); Glucose, Urine (Dipstick) 300 mg/dL (Negative); Ketone, Urine Negative (Negative); Leukocyte Negative Leu/uL (Negative); Methadone Not Detected (NotDetected); Methamphetamine Detected (NotDetected); Nitrite Negative (Negative); Opiate Screen Not Detected (NotDetected); Oxycodone Screen Not Detected (NotDetected); Phencyclidine (PCP) Not Detected (NotDetected); Protein, Urine (Dipstick) Negative (Neg-Trace); RBC/HPF 0-3 HPF (0-3); Squamous Epithelial None Seen HPF (0-3); THC/Cannabinoid Screen Not Detected (NotDetected); Tricyclic Screen Not Detected (NotDetected); Urobilinogen Normal mg/dL (Less than 2); WBC/HPF 0-3 HPF (0-3); pH, Urine 6.5 (5.0-9.0)
[2022-12-24 01:22] LABS: Urine Culture Reflex No No
== END 2022-12-24 01:48 ==
LOC: ERS 00:15
DX: R44.3 Hallucinations, unspecified (principal); I10 Essential (primary) hypertension; F17.210 Nicotine dependence, cigarettes, uncomplicated; Z79.899 Other long term (current) drug therapy
CPT/HCPCS: 36415; 80053; 80306; 80307; 81001; 84443; 85025

== ENCOUNTER 2022-12-24 14:09 | Emergency (ER) | payer BC, OTHER, SELFPAY ==
[2022-12-24 14:40] LABS: #Eosinphils 0.1 thou/uL (0.0-0.7); #Monocytes 0.8 thou/uL (0.11-0.59); %Basophils 0.4 % (0.0-1.0); %Eosinophils 0.6 % (0.0-10.0); %Lymphocytes 11.1 % (21.0-51.0); %Monocytes 7.7 % (0.0-10.0); %Neutrophils 79.9 % (42.0-75.0); Hematocrit 39.8 % (42.0-52.0); Hemoglobin 14.7 g/dL (14.0-18.0); Mean Corpuscular HGB CONC 36.9 g/dL (32.0-36.0); Mean Corpuscular Hemoglobin 31.3 pg (27.0-31.0); Mean Corpuscular Volume 84.7 fl (78.0-98.0); Mean Platelet Volume 9.5 fL (7.4-10.4); Platelet Count 377 10x3/uL (130-400); RBC Distribution Width 12.1 % (11.5-14.5)
[2022-12-24 15:07] LABS: Acetaminophen Less than 10 mcg/mL (10.0-30.0); Alcohol Less than 10.0 mg/dL (Less than 10); Salicylate Less than 8.0 mg/dL (15.0-30.0)
[2022-12-24 15:08] LABS: ALT (SGPT) 21 U/L (8-55); AST (SGOT) 22 U/L (5-34); Alkaline Phosphatase 76 U/L (40-110); Anion Gap 16 mmol/L (10-20); BUN (Urea Nitrogen) 8 mg/dL (8.9-20.6); Bilirubin, Total 0.8 mg/dL (0.2-1.2); Calc. Creatinine Clearance 0 mL/min (70-130); Calcium 10.1 mg/dL (7.8-10.44); Carbon Dioxide 24 mmol/L (22-29); Chloride 95 mmol/L (98-107); Estimated GFR 93; Globulin 2.9 g/dL (2.4-3.5); Glucose 224 mg/dL (70-105); Potassium 3.6 mmol/L (3.5-5.1); Protein, Total 7.9 g/dL (6.0-8.3); Sodium 131 mmol/L (136-145)
[2022-12-24 15:11] LABS: Troponin I Less than 0.010 ng/mL (< 0.028)
[2022-12-24] MEDS ORDERED: Boostrix 0.5 ML (Tdap) VIAL (>/=7 yrs of age) ONE (16:17)
[2022-12-24] MEDS ORDERED: LORazepam 2 MG/ML SYR.(CARPUJECT) ONE ×2 (16:17→17:41)
[2022-12-24] MEDS ORDERED: Haloperidol Lactate 5 MG/ML VIAL ONE (17:42)
[2022-12-25 09:41] LABS: Amphetamine Detected (NotDetected); Barbiturates Screen Not Detected (NotDetected); Benzodiazepine Screen Detected (NotDetected); Cocaine Metabolite Screen Detected (NotDetected); Methadone Not Detected (NotDetected); Methamphetamine Detected (NotDetected); Opiate Screen Not Detected (NotDetected); Oxycodone Screen Not Detected (NotDetected); Phencyclidine (PCP) Not Detected (NotDetected); THC/Cannabinoid Screen Not Detected (NotDetected); Tricyclic Screen Not Detected (NotDetected)
[2022-12-25 10:00] LABS: SARS-CoV-2 NAA Rapid Test Not Detected (NotDetected)
[2022-12-25] MEDS ORDERED: Amlodipine 5 MG TAB ONE (10:43)
== END 2022-12-25 16:47 | disposition home or self-care (01) ==
LOC: EEVIPCON 14:09 → ERS 14:09
DX: S06.9X9A Unspecified intracranial injury with loss of consciousness of unspecified duration, initial encounter (principal); S00.01XA Abrasion of scalp, initial encounter; F23 Brief psychotic disorder; F15.10 Other stimulant abuse, uncomplicated; I10 Essential (primary) hypertension; F17.210 Nicotine dependence, cigarettes, uncomplicated; X58.XXXA Exposure to other specified factors, initial encounter; Y92.149 Unspecified place in prison as the place of occurrence of the external cause; Z23 Encounter for immunization; Z20.822 Contact with and (suspected) exposure to COVID-19; Z79.899 Other long term (current) drug therapy
CPT/HCPCS: 70450; 72125; 80306; 80307; 84443; 84484; 90471; 90715; 96372; 96374; J1630; J2060; U0002

== ENCOUNTER 2023-01-06 18:25 | Emergency (ER) | payer SELFPAY ==
[2023-01-06 18:59] LABS: Bilirubin Negative (Negative); Blood, Urine Negative (Negative); Clarity Clear (Clear); Glucose, Urine (Dipstick) 250 mg/dL (Negative); Ketone, Urine Trace mg/dL (Negative); Leukocyte Negative (Negative); Nitrite Negative (Negative); Protein, Urine (Dipstick) Negative (Neg-Trace); Specific Gravity, Urine 1.004 (1.002-1.036); Urobilinogen 0.2 mg/dL (Less than 2); pH, Urine 6.5 (5.0-9.0)
[2023-01-06 19:07] LABS: #Basophils 0.1 thou/uL (0.0-0.2); #Eosinphils 0.3 thou/uL (0.0-0.7); #Monocytes 1.1 thou/uL (0.11-0.59); #Neutrophils 11.7 thou/uL (1.40-6.50); %Basophils 0.4 % (0.0-1.0); %Eosinophils 1.9 % (0.0-10.0); %Lymphocytes 13.6 % (21.0-51.0); %Monocytes 7.2 % (0.0-10.0); %Neutrophils 76.4 % (42.0-75.0); Hematocrit 45.8 % (42.0-52.0); Hemoglobin 16.6 g/dL (14.0-18.0); Mean Corpuscular HGB CONC 36.2 g/dL (32.0-36.0); Mean Corpuscular Hemoglobin 31.4 pg (27.0-31.0); Mean Corpuscular Volume 86.7 fl (78.0-98.0); Mean Platelet Volume 8.9 fL (7.4-10.4); Platelet Count 488 10x3/uL (130-400); RBC Distribution Width 13.2 % (11.5-14.5); Red Blood Cell (RBC) Count 5.28 mill/uL (4.70-6.10); White Blood Cell (WBC) Count 15.4 10x3/uL (4.8-10.8)
[2023-01-06 19:08] LABS: Bacteria/HPF None Seen HPF (None Seen); CAUTI Indications for Culture Alt mental st,lethar; RBC/HPF None Seen HPF (0-3); Squamous Epithelial None Seen HPF (0-3); Urine Culture Reflex No No; WBC/HPF None Seen HPF (0-3)
[2023-01-06 19:09] LABS: Amphetamine Detected (NotDetected); Barbiturates Screen Not Detected (NotDetected); Benzodiazepine Screen Not Detected (NotDetected); Cocaine Metabolite Screen Not Detected (NotDetected); Methadone Not Detected (NotDetected); Methamphetamine Detected (NotDetected); Opiate Screen Not Detected (NotDetected); Oxycodone Screen Not Detected (NotDetected); Phencyclidine (PCP) Not Detected (NotDetected); THC/Cannabinoid Screen Not Detected (NotDetected); Tricyclic Screen Not Detected (NotDetected)
[2023-01-06 19:37] LABS: Acetaminophen Less than 10 mcg/mL (10.0-30.0); Alcohol Less than 10.0 mg/dL (Less than 10); Salicylate Less than 8.0 mg/dL (15.0-30.0)
[2023-01-06 19:38] LABS: ALT (SGPT) 14 U/L (8-55); AST (SGOT) 13 U/L (5-34); Albumin 5.3 g/dL (3.5-5.0); Alkaline Phosphatase 90 U/L (40-110); Anion Gap 16 mmol/L (10-20); BUN (Urea Nitrogen) 7 mg/dL (8.9-20.6); Bilirubin, Total 0.6 mg/dL (0.2-1.2); Calc. Creatinine Clearance 0 mL/min (70-130); Calcium 9.6 mg/dL (7.8-10.44); Carbon Dioxide 22 mmol/L (22-29); Chloride 92 mmol/L (98-107); Estimated GFR 80; Globulin 3.1 g/dL (2.4-3.5); Glucose 178 mg/dL (70-105); Potassium 3.7 mmol/L (3.5-5.1); Protein, Total 8.4 g/dL (6.0-8.3); Sodium 126 mmol/L (136-145)
== END 2023-01-07 00:25 ==
LOC: ERS 18:25
DX: R44.1 Visual hallucinations (principal); R45.1 Restlessness and agitation; R45.851 Suicidal ideations; I10 Essential (primary) hypertension; F17.210 Nicotine dependence, cigarettes, uncomplicated
CPT/HCPCS: 36415; 36416; 80053; 80306; 80307; 81001; 84443; 85025; 93005; 96372; J1790

== ENCOUNTER 2023-01-13 22:26 | Emergency (ER) | payer SELFPAY ==
[2023-01-13 23:25] LABS: #Eosinphils 0.1 thou/uL (0.0-0.7); #Monocytes 0.5 thou/uL (0.11-0.59); #Neutrophils 5.6 thou/uL (1.40-6.50); %Basophils 0.5 % (0.0-1.0); %Eosinophils 1.2 % (0.0-10.0); %Lymphocytes 17.3 % (21.0-51.0); %Monocytes 7.1 % (0.0-10.0); %Neutrophils 73.5 % (42.0-75.0); Hematocrit 40.3 % (42.0-52.0); Hemoglobin 14.5 g/dL (14.0-18.0); Mean Corpuscular Hemoglobin 31.3 pg (27.0-31.0); Mean Platelet Volume 9.3 fL (7.4-10.4); Platelet Count 394 10x3/uL (130-400); RBC Distribution Width 13.2 % (11.5-14.5); Red Blood Cell (RBC) Count 4.63 mill/uL (4.70-6.10); White Blood Cell (WBC) Count 7.6 10x3/uL (4.8-10.8)
[2023-01-13 23:48] LABS: ALT (SGPT) 18 U/L (8-55); AST (SGOT) 12 U/L (5-34); Albumin 4.8 g/dL (3.5-5.0); Alkaline Phosphatase 84 U/L (40-110); Anion Gap 19 mmol/L (10-20); BUN (Urea Nitrogen) 8 mg/dL (8.9-20.6); Bilirubin, Total 0.3 mg/dL (0.2-1.2); Calc. Creatinine Clearance 0 mL/min (70-130); Calcium 9.5 mg/dL (7.8-10.44); Carbon Dioxide 18 mmol/L (22-29); Chloride 100 mmol/L (98-107); Estimated GFR 79; Globulin 2.2 g/dL (2.4-3.5); Glucose 199 mg/dL (70-105); Potassium 4.3 mmol/L (3.5-5.1); Sodium 133 mmol/L (136-145)
[2023-01-13 23:51] LABS: Troponin I Less than 0.010 ng/mL (< 0.028)
[2023-01-13] MEDS ORDERED: Amlodipine 5 MG TAB ONE (23:52)
[2023-01-14] MEDS ORDERED: hydrOXYzine 25 MG TAB ONE (00:12)
[2023-01-14] MEDS ORDERED: LORazepam 2 MG/ML SYR.(CARPUJECT) ONE (00:17)
[2023-01-14] MEDS ORDERED: Sterile Water 10 ML VIAL FS PRN (01:45)
[2023-01-14] MEDS ORDERED: OLANZapine 10 MG VIAL IM SCH (01:45)
[2023-01-14 03:07] LABS: Acetaminophen Less than 10 mcg/mL (10.0-30.0); Alcohol Less than 10.0 mg/dL (Less than 10); Salicylate Less than 8.0 mg/dL (15.0-30.0)
[2023-01-14 03:31] LABS: Bacteria/HPF None Seen HPF (None Seen); Bilirubin Negative (Negative); Blood, Urine Negative (Negative); Clarity Clear (Clear); Glucose, Urine (Dipstick) 100 mg/dL (Negative); Ketone, Urine Trace mg/dL (Negative); Leukocyte Negative Leu/uL (Negative); Nitrite Negative (Negative); Protein, Urine (Dipstick) Negative (Neg-Trace); RBC/HPF None Seen HPF (0-3); Specific Gravity, Urine 1.008 (1.002-1.036); Squamous Epithelial None Seen HPF (0-3); Urobilinogen Normal mg/dL (Less than 2); WBC/HPF None Seen HPF (0-3)
[2023-01-14 03:36] LABS: Urine Culture Reflex No No
[2023-01-14 03:39] LABS: Amphetamine Detected (NotDetected); Barbiturates Screen Not Detected (NotDetected); Benzodiazepine Screen Not Detected (NotDetected); Cocaine Metabolite Screen Detected (NotDetected); Methadone Not Detected (NotDetected); Methamphetamine Detected (NotDetected); Opiate Screen Not Detected (NotDetected); Oxycodone Screen Not Detected (NotDetected); Phencyclidine (PCP) Not Detected (NotDetected); THC/Cannabinoid Screen Not Detected (NotDetected); Tricyclic Screen Not Detected (NotDetected)
[2023-01-14] MEDS ORDERED: Thiamine HCl 200 MG/2 ML VIAL ONE (04:53)
== END 2023-01-14 12:16 ==
LOC: ERS 22:26
DX: F29 Unspecified psychosis not due to a substance or known physiological condition (principal); I10 Essential (primary) hypertension; F17.210 Nicotine dependence, cigarettes, uncomplicated
CPT/HCPCS: 36415; 71045; 80053; 80306; 80307; 81001; 83735; 84443; 84484; 85025; 93005; 94760; 96361; 96365; 96372; 96375; J2060; J3411

== ENCOUNTER 2023-02-10 18:05 | Emergency (ER) | payer SELFPAY ==
[2023-02-10 19:11] LABS: #Eosinphils 0.5 thou/uL (0.0-0.7); #Neutrophils 8.9 thou/uL (1.40-6.50); %Basophils 0.3 % (0.0-1.0); %Eosinophils 3.6 % (0.0-10.0); %Lymphocytes 24.7 % (21.0-51.0); %Neutrophils 64.1 % (42.0-75.0); Hemoglobin 18.2 g/dL (14.0-18.0); Mean Corpuscular HGB CONC 35.7 g/dL (32.0-36.0); Mean Corpuscular Hemoglobin 30.8 pg (27.0-31.0); Mean Corpuscular Volume 86.4 fl (78.0-98.0); Mean Platelet Volume 9.4 fL (7.4-10.4); Platelet Count 448 10x3/uL (130-400); RBC Distribution Width 12.3 % (11.5-14.5); White Blood Cell (WBC) Count 13.9 10x3/uL (4.8-10.8)
[2023-02-10 19:33] LABS: Acetaminophen Less than 10 mcg/mL (10.0-30.0); Alcohol 108.3 mg/dL (Less than 10); Salicylate Less than 8.0 mg/dL (15.0-30.0)
[2023-02-10 19:35] LABS: ALT (SGPT) 19 U/L (8-55); AST (SGOT) 26 U/L (5-34); Albumin 4.9 g/dL (3.5-5.0); Alkaline Phosphatase 78 U/L (40-110); Anion Gap 19 mmol/L (10-20); BUN (Urea Nitrogen) 7 mg/dL (8.9-20.6); Bilirubin, Total 0.9 mg/dL (0.2-1.2); Calc. Creatinine Clearance 0 mL/min (70-130); Calcium 9.9 mg/dL (7.8-10.44); Carbon Dioxide 17 mmol/L (22-29); Chloride 95 mmol/L (98-107); Estimated GFR 94; Globulin 3.1 g/dL (2.4-3.5); Glucose 176 mg/dL (70-105); Potassium 3.2 mmol/L (3.5-5.1); Sodium 128 mmol/L (136-145)
[2023-02-10 19:44] LABS: Troponin I Less than 0.010 ng/mL (< 0.028)
[2023-02-10] MEDS ORDERED: LORazepam 2 MG/ML SYR.(CARPUJECT) ONE (20:11)
[2023-02-10 20:48] LABS: Bacteria/HPF None Seen HPF (None Seen); Bilirubin Negative (Negative); Blood, Urine Negative (Negative); CAUTI Indications for Culture Dysuria,urgency,freq; Clarity Clear (Clear); Glucose, Urine (Dipstick) Normal (Negative); Ketone, Urine 20 mg/dL (Negative); Leukocyte Negative Leu/uL (Negative); Nitrite Negative (Negative); Protein, Urine (Dipstick) Negative (Neg-Trace); RBC/HPF 0-3 HPF (0-3); Specific Gravity, Urine 1.006 (1.002-1.036); Squamous Epithelial None Seen HPF (0-3); Urobilinogen Normal mg/dL (Less than 2); WBC/HPF 0-3 HPF (0-3)
[2023-02-10 20:51] LABS: Urine Culture Reflex No No
[2023-02-10 20:55] LABS: Amphetamine Detected (NotDetected); Barbiturates Screen Not Detected (NotDetected); Benzodiazepine Screen Not Detected (NotDetected); Cocaine Metabolite Screen Not Detected (NotDetected); Methadone Not Detected (NotDetected); Methamphetamine Detected (NotDetected); Opiate Screen Not Detected (NotDetected); Oxycodone Screen Not Detected (NotDetected); Phencyclidine (PCP) Not Detected (NotDetected); THC/Cannabinoid Screen Not Detected (NotDetected); Tricyclic Screen Not Detected (NotDetected)
== END 2023-02-10 22:17 | disposition home or self-care (01) ==
LOC: ERS 18:05
DX: F19.10 Other psychoactive substance abuse, uncomplicated (principal); R00.0 Tachycardia, unspecified; F41.9 Anxiety disorder, unspecified; E87.1 Hypo-osmolality and hyponatremia; I10 Essential (primary) hypertension; F17.210 Nicotine dependence, cigarettes, uncomplicated
CPT/HCPCS: 36415; 71045; 80053; 80306; 80307; 81001; 83735; 84443; 84484; 85025; 93005; 96361; 96374; J2060

== ENCOUNTER 2023-03-24 14:56 | Emergency (ER) | payer SELFPAY ==
[2023-03-24] MEDS ORDERED: LORazepam 2 MG/ML SYR.(CARPUJECT) ONE (15:31)
[2023-03-24 15:38] LABS: #Eosinphils 0.1 thou/uL (0.0-0.7); #Monocytes 1.1 thou/uL (0.11-0.59); #Neutrophils 6.7 thou/uL (1.40-6.50); %Basophils 0.4 % (0.0-1.0); %Eosinophils 1.1 % (0.0-10.0); %Lymphocytes 19.6 % (21.0-51.0); %Monocytes 11.1 % (0.0-10.0); %Neutrophils 67.5 % (42.0-75.0); Hemoglobin 18.1 g/dL (14.0-18.0); Mean Corpuscular HGB CONC 35.5 g/dL (32.0-36.0); Mean Corpuscular Hemoglobin 30.9 pg (27.0-31.0); Mean Platelet Volume 8.9 fL (7.4-10.4); Platelet Count 402 10x3/uL (130-400); RBC Distribution Width 12.6 % (11.5-14.5); Red Blood Cell (RBC) Count 5.86 mill/uL (4.70-6.10)
[2023-03-24 16:01] LABS: Acetaminophen Less than 10 mcg/mL (10.0-30.0); Alcohol Less than 10.0 mg/dL (Less than 10); CK (CPK) 1381 U/L (30-200); Salicylate Less than 8.0 mg/dL (15.0-30.0)
[2023-03-24 16:02] LABS: ALT (SGPT) 28 U/L (8-55); AST (SGOT) 71 U/L (5-34); Albumin 5.1 g/dL (3.5-5.0); Alkaline Phosphatase 101 U/L (40-110); Anion Gap 18 mmol/L (10-20); BUN (Urea Nitrogen) 9 mg/dL (8.9-20.6); Calc. Creatinine Clearance 0 mL/min (70-130); Calcium 10.2 mg/dL (7.8-10.44); Carbon Dioxide 22 mmol/L (22-29); Chloride 98 mmol/L (98-107); Estimated GFR 86; Globulin 3.1 g/dL (2.4-3.5); Glucose 153 mg/dL (70-105); Protein, Total 8.2 g/dL (6.0-8.3); Sodium 134 mmol/L (136-145)
[2023-03-24 16:05] LABS: Troponin I Less than 0.010 ng/mL (< 0.028)
[2023-03-24] MEDS ORDERED: Lisinopril 10 MG TAB ONE (17:59)
== END 2023-03-24 18:06 | disposition home or self-care (01) ==
LOC: ERS 14:56
DX: M62.82 Rhabdomyolysis (principal); F19.10 Other psychoactive substance abuse, uncomplicated; I10 Essential (primary) hypertension; F17.210 Nicotine dependence, cigarettes, uncomplicated
CPT/HCPCS: 71045; 80053; 80307; 82550; 84484; 85025; 93005; 96361; 96374; J2060

== ENCOUNTER 2023-03-26 00:13 | Emergency (ER) | payer SELFPAY ==
[2023-03-26] MEDS ORDERED: Acetaminophen 500 MG TAB ONE (00:36)
== END 2023-03-26 01:42 | disposition home or self-care (01) ==
LOC: ERS 00:13
DX: S80.02XA Contusion of left knee, initial encounter (principal); I10 Essential (primary) hypertension; F17.210 Nicotine dependence, cigarettes, uncomplicated; W18.09XA Striking against other object with subsequent fall, initial encounter; Z79.899 Other long term (current) drug therapy
CPT/HCPCS: 93005

== ENCOUNTER 2023-08-10 01:29 | Emergency (ER) | payer SELFPAY | END 2023-08-10 02:53 | disposition home or self-care (01) | LOC: ERS 01:29 | DX: F41.9 Anxiety disorder, unspecified (principal) | CPT/HCPCS: 99283 ==

== ENCOUNTER 2023-12-10 04:35 | Emergency (ER) | payer SELFPAY ==
[2023-12-10 05:29] LABS: #Basophils 0.04 10x3/uL (0.0-0.2); %Basophils 0.7 % (0.0-1.0); %Eosinophils 4.1 % (0.0-10.0); %Lymphocytes 29.6 % (21.0-51.0); %Monocytes 10.9 % (0.0-10.0); %Neutrophils 54.5 % (42.0-75.0); Hematocrit 41.8 % (42.0-52.0); Hemoglobin 14.2 g/dL (14.0-18.0); Mean Corpuscular Hemoglobin 29.8 pg (27.0-31.0); Mean Corpuscular Volume 87.8 fL (78.0-98.0); Mean Platelet Volume 8.7 fL (7.4-10.4); Platelet Count 312 10x3/uL (130-400); RBC Distribution Width 13.2 % (11.5-14.5); Red Blood Cell (RBC) Count 4.76 mill/uL (4.70-6.10)
[2023-12-10 05:45] LABS: ALT (SGPT) 21 U/L (8-55); AST (SGOT) 22 U/L (5-34); Albumin 3.9 g/dL (3.5-5.0); Alkaline Phosphatase 68 U/L (40-110); Anion Gap 16 mmol/L (10-20); BUN (Urea Nitrogen) 4 mg/dL (8.9-20.6); Bilirubin, Total 0.8 mg/dL (0.2-1.2); Calc. Creatinine Clearance 0 mL/min (70-130); Calcium 9.2 mg/dL (7.8-10.44); Carbon Dioxide 19 mmol/L (22-29); Chloride 100 mmol/L (98-107); Estimated GFR 82; Globulin 2.8 g/dL (2.4-3.5); Glucose 198 mg/dL (70-105); Potassium 3.7 mmol/L (3.5-5.1); Protein, Total 6.7 g/dL (6.0-8.3); Sodium 131 mmol/L (136-145)
[2023-12-10 05:46] LABS: Acetaminophen Less than 10 mcg/mL (Less than 10); Alcohol 24.1 mg/dL (Less than 10); Salicylate Less than 8.0 mg/dL (Less than 8.0)
[2023-12-10 06:21] LABS: Bacteria/HPF None Seen HPF (None Seen); Bilirubin Negative (Negative); Blood, Urine Negative (Negative); CAUTI Indications for Culture Alt mental st,lethar; Clarity Clear (Clear); Glucose, Urine (Dipstick) Normal (Negative); Ketone, Urine 10 mg/dL (Negative); Leukocyte Negative Leu/uL (Negative); Nitrite Negative (Negative); Protein, Urine (Dipstick) Negative (Neg-Trace); RBC/HPF 0-3 HPF (0-3); Specific Gravity, Urine 1.005 (1.002-1.036); Squamous Epithelial None Seen HPF (0-3); Urobilinogen Normal mg/dL (Less than 2); WBC/HPF None Seen HPF (0-3); pH, Urine 6.5 (5.0-9.0)
[2023-12-10 06:28] LABS: Amphetamine Detected (NotDetected); Barbiturates Screen Not Detected (NotDetected); Benzodiazepine Screen Not Detected (NotDetected); Cocaine Metabolite Screen Not Detected (NotDetected); Methadone Not Detected (NotDetected); Methamphetamine Detected (NotDetected); Opiate Screen Not Detected (NotDetected); Oxycodone Screen Not Detected (NotDetected); Phencyclidine (PCP) Not Detected (NotDetected); THC/Cannabinoid Screen Not Detected (NotDetected); Tricyclic Screen Not Detected (NotDetected)
[2023-12-10 06:33] LABS: Urine Culture Reflex No No
== END 2023-12-10 08:41 | disposition home or self-care (01) ==
LOC: ERS 04:35
DX: F19.10 Other psychoactive substance abuse, uncomplicated (principal); F43.20 Adjustment disorder, unspecified; E87.1 Hypo-osmolality and hyponatremia; I10 Essential (primary) hypertension; F17.210 Nicotine dependence, cigarettes, uncomplicated; Z79.84 Long term (current) use of oral hypoglycemic drugs; Z79.899 Other long term (current) drug therapy
CPT/HCPCS: 80053; 80306; 80307; 81001; 85025; 93005

== ENCOUNTER 2023-12-10 23:57 | Emergency (ER) | payer SELFPAY | END 2023-12-11 01:01 | disposition left against medical advice (07) | LOC: ERS 23:57 | DX: Z53.21 Procedure and treatment not carried out due to patient leaving prior to being seen by health care provider (principal) ==